=== PATIENT | male | born 1990 | race Caucasian/White ===

== ENCOUNTER 2018-09-17 07:30 | Emergency (ER) | payer OTHER ==
[2018-09-17 09:18] LABS: HEMATOCRIT 43.1 % (42.0-52.0); HEMOGLOBIN 14.9 g/dl (13.5-17.5); MEAN CORPUSCULAR HEMOGLOBIN 29.7 pg (27.0-33.0); MEAN CORPUSCULAR HGB CONC 34.6 g/dl (32.0-36.5); PLATELET COUNT, AUTOMATED 258 10^3/uL (150-450); RED BLOOD COUNT 5.01 10^6/uL (4.30-6.10); WHITE BLOOD COUNT 9.8 10^3/uL (4.0-10.0)
[2018-09-17 10:03] LABS: ALBUMIN 4.3 GM/DL (3.2-5.2); ALT/SGPT 53 U/L (12-78); BILIRUBIN,DIRECT < 0.1 MG/DL (0.0-0.2); BILIRUBIN,TOTAL 0.2 MG/DL (0.2-1.0); BLOOD UREA NITROGEN 12 MG/DL (7-18); CALCIUM LEVEL 8.7 MG/DL (8.5-10.1); CARBON DIOXIDE LEVEL 28 MEQ/L (21-32); CHLORIDE LEVEL 110 MEQ/L (98-107); CREATININE FOR GFR 1.31 MG/DL (0.70-1.30); ETHYL ALCOHOL (ETHANOL) 0.185 % (0.000-0.010); GLOMERULAR FILTRATION RATE > 60.0 (>60); GLUCOSE, FASTING 106 MG/DL (70-100); POTASSIUM SERUM 3.9 MEQ/L (3.5-5.1); SALICYLATE LEVEL < 1.7 MG/DL (5.0-30.0); SODIUM LEVEL 144 MEQ/L (136-145); TOTAL PROTEIN 7.6 GM/DL (6.4-8.2)
[2018-09-17 10:04] LABS: ACETAMINOPHEN LEVEL < 2.0 UG/ML (10.0-30.0)
[2018-09-17 10:17] LABS: AMPHETAMINES LEVEL URINE NEGATIVE (NEGATIVE); BARBITURATES URINE NEGATIVE (NEGATIVE); BENZODIAZEPINES URINE NEGATIVE (NEGATIVE); CANNABINOIDS URINE NEGATIVE (NEGATIVE); COCAINE METABOLITE URINE NEGATIVE (NEGATIVE); METHADONE URINE NEGATIVE (NEGATIVE); OPIATES URINE NEGATIVE (NEGATIVE); PHENCYCLIDINE URINE NEGATIVE (NEGATIVE)
--- NOTE | 2018-09-17 13:48 | ED PDOC ---
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 The patient had reportedly made a variety of unusual and aggressive statements subsequently eventually needing to be tasered and subdued before being brought into the emergency room. He was known to be fairly intoxicated with alcohol. The patient was met with where he described he didn't remember much after he had gone out for a cigarette after drinking with his friends. The collateral information reveals that the patient had gotten into an argument with a friend about [employer] and subsequently the argument had devolved into various threats. The patient provided collateral information for one of his close friends who's known for a year in the and reports that the patient generally has been a fairly happy and amenable person as far as he's known him. He is returned from deployment three days ago. The patient describes that he hasn't had any recent depressive symptoms or psychiatric problems. He described the night in question is actually "quite good" and struggled to remember the events that had led him into the ER. He appeared to be fairly honest and upfront with his history. Review Of Systems Depression: The patient denies any current depressive symptoms, but reports distant episodes several years ago of a depressed episode with low mood, fatigue, concentration problems and suicidal thoughts but none since. Anxiety: The patient denies any excessive worry associated with physical symptoms. They deny any experience of discreet panic in the past. Estefania: The patient denies any episodes of euphoria/dysphoria associated with decreased need for sleep, hedonism, talkatively or impulsivity lasting longer than 5 days. Psychotic: The patient denies any experiences of auditory or visual hallucinations. They deny any episodes of paranoia or delusional thinking in the past Trauma: The patient denies any traumatic events associated with nightmares or intrusive thoughts. Borderline: The patient screens negative for borderline personality at this junction. Past Psychiatric History The patient does report an episode of attempting to hang himself five years ago that he aborted. He does report seeing [facility] at [place] in the past. Allergies Please see below. Family Psychiatric History The patient denies/is unaware any history of mental health history including addictions and suicide. Social History The patient grew up in [place] where he describes the generally amenable childhood without significant trauma. 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 He returned from deployment in [facility] three days ago and the rest of his squad is to return shortly. He denies any recent legal troubles. Substance Abuse History The patient describes that he does smoke tobacco frequently and he states that the amount of drinking and question was fairly unusual for him and that he has not had previous reported problems with illicit drugs or inpatient rehab. Medical History Patient has no significant past medical history. Mental Status Examination General: Well dressed with good hygiene Speech: Spontaneous and fluid Thought processes: Linear and logical MSK: Smooth and coordinated gait, no signs of tremors or involuntary orofacial movements Thought content: Future orientated Abstract reasoning, and computation: Intact Description of associations: Intact Description of abnormal or psychotic thoughts: Denies any suicidal or homicidal ideation. Denies any auditory or visual hallucinations. Does not appear to be responding to internal stimuli. Does not appear to be endorsing any bizarre or paranoid ideation. Judgment: fair Insight: fair Orientation: Alert and orientated 3 Cognition: Grossly normal Recent and remote memory: Intact Attention span and concentration: Intact Fund of knowledge: Adequate Mood: "okay" Affect: Euthymic with a full range Diagnoses Alcohol use disorder, moderate. Tobacco use disorder, moderate. Assessment and Plan The patient is a 28 year old man who recently returned from deployment appears to have been fairly intoxicated and made several statements and had been restrained by police. He does not remember the majority of the events suggesting that they were primarily result of intoxication. The patient's collateral information supports this. He may be discharged from a psychiatric perspective. In my clinical judgment his risk factors for self harm are currently low on a preponderance of the information above. Time Spent 30 minutes Wednesday EDISON VILLELA DO Sep 17, 2018 13:48
[2018-09-17 16:09] VITALS: BP 115/67
== END 2018-09-17 16:10 | disposition home or self-care (01) ==
LOC: M ED 07:30
DX: R45.851 Suicidal ideations (principal)
CPT/HCPCS: 80048; 80076; 80307; 84443; 85027; 99284; G0480